=== PATIENT | male | born 2000 | race Hispanic/Latino ===

== ENCOUNTER 2022-05-22 19:59 | Emergency (ER) | payer BC ==
[2022-05-22] MEDS ORDERED: Acetaminophen 500 MG TAB ONE (21:49)
[2022-05-22] MEDS ORDERED: Ibuprofen 800 MG TAB ONE (21:49)
== END 2022-05-22 22:35 | disposition home or self-care (01) ==
LOC: ERS 19:59
DX: S82.832A Other fracture of upper and lower end of left fibula, initial encounter for closed fracture (principal); F17.290 Nicotine dependence, other tobacco product, uncomplicated; W19.XXXA Unspecified fall, initial encounter
CPT/HCPCS: 27786

== ENCOUNTER 2022-05-29 09:40 | Outpatient (CLI) | payer BC | END 2022-05-29 09:41 | disposition home or self-care (01) | LOC: LABBT 09:40 | PROVIDERS: ATTEND Orthopaedic Surgery | DX: Z01.812 Encounter for preprocedural laboratory examination (principal); S82.892A Other fracture of left lower leg, initial encounter for closed fracture; Z20.822 Contact with and (suspected) exposure to COVID-19 | CPT/HCPCS: 87811 ==

== ENCOUNTER 2022-05-30 10:56 | Day surgery (SDC) | payer BC ==
[2022-05-29 11:35] VITALS: BMI 35.2
[2022-05-30] MEDS ORDERED: Midazolam HCl 2 mg/2 ml Vial ONE (11:51)
[2022-05-30] MEDS ORDERED: Fentanyl 100 MCG/2 ML VIAL ONE (11:51)
[2022-05-30] MEDS ORDERED: fentaNYL Citrate/PF 100 MCG/2 ML SYRINGE ONE (12:55)
[2022-05-30] MEDS ORDERED: CEFAZOLIN 2 GM VIAL ONE (12:59)
[2022-05-30] MEDS ORDERED: Sodium Chloride 0.9% 100 ML ONE (12:59)
[2022-05-30] MEDS ORDERED: Ondansetron PF 4 MG/2 ML Vial ONE (13:12)
[2022-05-30] MEDS ORDERED: Dexamethasone 20 MG/5 ML VIAL ONE (13:12)
[2022-05-30] MEDS ORDERED: Phenylephrine 10 MG/ML VIAL ONE (13:12)
[2022-05-30] MEDS ORDERED: Lidocaine 1% PF 5 ML VIAL ONE (13:12)
[2022-05-30] MEDS ORDERED: Bupivacaine HCl 0.5%/Epinephrine 1:200,000/PF 30 ml Vial ONE (13:12)
[2022-05-30] MEDS ORDERED: PROPOFOL 200 MG/20 ML VIAL ONE (13:12)
[2022-05-30] MEDS ORDERED: Meperidine HCl/PF 25 MG/ML VIAL ONE (14:19)
== END 2022-05-30 16:23 | disposition home or self-care (01) ==
LOC: SDC 10:56
PROVIDERS: ATTEND Orthopaedic Surgery
PROC: 0QSK04Z Reposition Left Fibula with Internal Fixation Device, Open Approach (ICD-10-PCS; principal; 2022-05-30)
PROC: 3E0T3BZ Introduction of Anesthetic Agent into Peripheral Nerves and Plexi, Percutaneous Approach (ICD-10-PCS; principal; 2022-05-30)
DX: S82.62XA Displaced fracture of lateral malleolus of left fibula, initial encounter for closed fracture (principal); Z79.1 Long term (current) use of non-steroidal anti-inflammatories (NSAID); Z88.1 Allergy status to other antibiotic agents; W19.XXXA Unspecified fall, initial encounter
CPT/HCPCS: 76000; C1713; C1874; J0690; J1100; J2175; J2250; J2370; J2405; J2704; J3010; J3490